=== PATIENT | female | born 1985 | race African-American/Black ===

== ENCOUNTER 2016-10-24 11:11 | Inpatient (IN) | payer OTHER ==
[2016-10-24 13:33] LABS: BASOPHIL 0.4 % (0-2.0); EOSINOPHIL 0.5 % (0-4.5); MCH 28.2 pg (25.7-33.7); MCHC 32.3 g/dl (32.0-36.0); MEAN CELL VOLUME 87.3 fl (80-96); MEAN PLT VOLUME 9.1 fl (7.5-11.1); NEUTROPHILS 78.6 % (42.8-82.8); PLATELET COUNT 188 K/MM3 (134-434); RDW 13.6 % (11.6-15.6); WHITE BLOOD COUNT 9.3 K/mm3 (4.0-10.0)
[2016-10-24 13:55] LABS: ALBUMIN 2.5 g/dl (3.4-5.0); ANION GAP 13 (8-16); BILIRUBIN,TOTAL 0.9 mg/dL (0.2-1.0); CALCIUM 8.4 mg/dL (8.5-10.1); CO2 22 mmol/L (21-32); COCKROFT - GAULT 0; CREATININE 0.7 mg/dL (0.55-1.02); GLUCOSE,RANDOM 54 mg/dL (74-106); SGOT/AST 46 U/L (15-37); SGPT/ALT 44 U/L (12-78); TOT PROT 5.9 g/dl (6.4-8.2)
[2016-10-24 13:56] LABS: ALK PHOS 89 U/L (45-117)
[2016-10-24 14:02] LABS: URINE APPEARANCE CLEAR; URINE BILIRUBIN NEGATIVE (NEGATIVE); URINE BLOOD NEGATIVE (NEGATIVE); URINE COLOR AMBER; URINE GLUCOSE (UA) NEGATIVE (NEGATIVE); URINE KETONE TRACE (NEGATIVE); URINE LEUK ESTERASE NEGATIVE (NEGATIVE); URINE NITRITE NEGATIVE (NEGATIVE); URINE UROBILINOGEN NEGATIVE E.U./dl (0.2-1.0)
[2016-10-24 14:10] LABS: URIC ACID 5.1 mg/dL (2.6-7.2)
[2016-10-24 14:14] LABS: URINE PROTEIN 3+ (NEGATIVE)
[2016-10-24 14:19] LABS: GRANULAR CASTS 5 /lpf; URINE BACTERIA RARE /hpf (NONE SEEN); URINE MUCUS MANY; URINE RBC 2 /hpf (0-3); URINE WBC 4 /hpf (3-5)
[2016-10-24 17:03] VITALS: BMI 43.6
[2016-10-24 17:04] LABS: BASOPHIL 0.3 % (0-2.0); EOSINOPHIL 0.5 % (0-4.5); MCH 28.2 pg (25.7-33.7); MCHC 32.4 g/dl (32.0-36.0); MEAN PLT VOLUME 9.1 fl (7.5-11.1); NEUTROPHILS 81.4 % (42.8-82.8); PLATELET COUNT 198 K/MM3 (134-434); RDW 13.6 % (11.6-15.6); WHITE BLOOD COUNT 9.5 K/mm3 (4.0-10.0)
[2016-10-24 17:22] LABS: CALCIUM 8.3 mg/dL (8.5-10.1); COCKROFT - GAULT 215.152; CREATININE 0.8 mg/dL (0.55-1.02)
[2016-10-24 17:24] LABS: INR 0.99 (0.82-1.09); PROTHROMBIN TIME (PATIENT) 10.9 SEC (9.98-11.88)
[2016-10-24 17:27] LABS: ACTIVATED PTT 31.1 SECONDS (26.9-34.4)
[2016-10-24 17:55] LABS: HIV 1 & 2 AB NEGATIVE; HIV 1 AGp24 NEGATIVE
[2016-10-24] MEDS ORDERED: DINOPROSTONE 10 MG VAGINAL SUPPOSITORY VG ONE (18:08)
--- NOTE | 2016-10-24 18:09 | PN ---
Progress Note (short form) - Note Progress Note: cx clp, vx -4 mi, fhr cat 1, no contraction, cervidil rba discussed , cervidil inserted
--- NOTE | 2016-10-24 18:19 | HP ---
Past Medical History - Primary Care Physician PCP:: Sharan Jarvis - Admission Chief Complaint: 38,6 weeks, pih, for cervidil induction History of Present Illness: 30 yo f 0 edc by sono 11/01/16 , admitted with elevated BP, 3+ proteinuria, no head ache, no blurred vision, no RUQ pain, cervidil induction, risks, benefit discussed agreed History Source: Patient Limitations to Obtaining History: No Limitations - Past Medical History ...: 4 ...Para: 0 ...Term: 0 ...: 0 ...Spon : 0 ...Induced : 3 ...Multiple Gestation: 0 ...LMP: 01/26/16 ... Weeks Gestation by Dates: 38.6 ...EDC by Dates: 11/01/16 ...EDC by Sono: 11/04/16 Infectious Disease: Yes: STD's (txed for chlamydia, trichomonas) - Past Surgical History Hx Myomectomy: No Hx Transabdominal Cerclage: No - Smoking History Smoking history: Never smoked Have you smoked in the past 12 months: Yes - Alcohol/Substance Use Hx Alcohol Use: No - Social History History of Recent Travel: No Home Medications - Allergies Allergies/Adverse Reactions: Allergies Allergy/AdvReac Type Severity Reaction Status Date / Time No Known Allergies Allergy Verified 10/24/16 15:36 - Home Medications Home Medications: Ambulatory Orders NK [No Known Home Medication] 10/24/16 Review of Systems - Review of Systems Constitutional: reports: No Symptoms Eyes: reports: No Symptoms HENT: reports: No Symptoms Neck: reports: No Symptoms Respiratory: reports: No Symptoms Gastrointestinal: reports: No Symptoms Genitourinary: reports: No Symptoms Breasts: reports: No Symptoms Reported Musculoskeletal: reports: No Symptoms Integumentary: reports: No Symptoms Neurological: reports: No Symptoms Endocrine: reports: No Symptoms Hematology/Lymphatic: reports: No Symptoms Psychiatric: reports: No Symptoms Physical Exam - Maternity Vital Signs: Vital Signs Temperature 98.7 F 10/24/16 15:20 Pulse Rate 62 10/24/16 17:00 Respiratory Rate 20 10/24/16 17:00 Blood Pressure 146/75 10/24/16 17:00 O2 Sat by Pulse Oximetry (%) Constitutional: Yes: Obese Eyes: Yes: WNL HENT: Yes: WNL Neck: Yes: WNL Cardiovascular: Yes: WNL Breast(s): Yes: WNL - Abdominal Exam/OB Fundal Height: 38 Number of Fetuses: Single Presentation: Vertex Contractions: No Intensity: Unaware Monitor Mode: External Heart Rate (range): 140 Heart Rate Location: [facility] Category: I Accelerations: Uniform Decelerations: None - Vaginal Exam/OB Vaginal Bleediing: No Speculum Exam: No Dilatation (cm): closed Effacement (%): 0 Amniotic Membrane Status: Intact Presentation: Vertex/Position Station: -4 - Physical Exam Edema: Yes Edema: LLE: 2+, RLE: 2+ Deep Tendon Reflex Grade: Normal +2 - Labs Lab Results: CBC, BMP 10/24/16 16:29 10/24/16 16:29 Hemorrhage Risk Assessment - Risk Factors Medium Risk Factors: Yes: Obesity (BMI >40) Risk Score: 1 Risk Level: Medium Risk Problem List - Problems (1) with 38 completed weeks gestation Code(s): Z3A.38 - 38 WEEKS GESTATION OF (2) Preeclampsia Code(s): O14.90 - UNSPECIFIED PRE-ECLAMPSIA, UNSPECIFIED TRIMESTER Qualifiers : Trimester: third trimester Qualified Code(s): O14.93 - Unspecified pre-eclampsia, third trimester (3) Obesity Code(s): E66.9 - OBESITY, UNSPECIFIED Assessment/Plan admit, HELLP profile, cervidil induction, rba discussed
[2016-10-25] MEDS ORDERED: ELECTROLYTE-148 SOLN 1,000 ML IV SCH ×2 (03:00→13:30)
[2016-10-25] MEDS ORDERED: BUTORPHANOL TARTRATE 1 MG/ML VIAL IVPB ONE (04:00)
--- NOTE | 2016-10-25 05:31 | PN ---
Progress Note (short form) - Note Progress Note: 5 am cx 7 cm, 80 vx -2, variable decel ,to 60 /min, with good recovery , difficult to monitor , does not stay still because of pain, arom, clear fluid , scalp electrode applied . lt side, O2, increase iv fluid , revaluate.for epidural or c /s Problem List - Problems (1) with 38 completed weeks gestation Code(s): Z3A.38 - 38 WEEKS GESTATION OF (2) Preeclampsia Code(s): O14.90 - UNSPECIFIED PRE-ECLAMPSIA, UNSPECIFIED TRIMESTER Qualifiers : Trimester: third trimester Qualified Code(s): O14.93 - Unspecified pre-eclampsia, third trimester (3) Obesity Code(s): E66.9 - OBESITY, UNSPECIFIED
[2016-10-25] MEDS ORDERED: WITCH HAZEL 50% (TUCKS) 40 PAD/JAR PAD TP PRN (05:41)
[2016-10-25] MEDS ORDERED: IBUPROFEN 600 MG TABLET (FP) PO PRN (05:41)
[2016-10-25] MEDS ORDERED: IBUPROFEN 800 MG/8 ML IJ IVPB PRN (05:41)
[2016-10-25] MEDS ORDERED: BENZOCAINE 28 GM HEMORRHOIDAL OINTMENT PR PRN (05:41)
[2016-10-25] MEDS ORDERED: diphenhydrAMINE HCL 25 MG CAPSULE (FP) PO PRN (05:41)
[2016-10-25] MEDS ORDERED: BENZOCAINE 20% 57 GM BOTTLE TP PRN (05:41)
[2016-10-25] MEDS ORDERED: METHYLERGONOVINE MALEATE 0.2 MG/1 ML AMP IM PRN (05:41)
[2016-10-25] MEDS ORDERED: oxyCODONE HCL 5 MG TABLET PO PRN (05:41)
--- NOTE | 2016-10-25 05:41 | PN ---
Progress Note (short form) - Note Progress Note: 515 am varables cont, cx 7 cm, -2 station, advised c/s rba discussed Problem List - Problems (1) with 38 completed weeks gestation Code(s): Z3A.38 - 38 WEEKS GESTATION OF (2) Preeclampsia Code(s): O14.90 - UNSPECIFIED PRE-ECLAMPSIA, UNSPECIFIED TRIMESTER Qualifiers : Trimester: third trimester Qualified Code(s): O14.93 - Unspecified pre-eclampsia, third trimester (3) Obesity Code(s): E66.9 - OBESITY, UNSPECIFIED
[2016-10-25] MEDS ORDERED: OXYTOCIN 20 UNITS in 0.9% NS 1,000 ML IV SCH (05:45)
[2016-10-25] MEDS ORDERED: DEXTROSE 5%-LACTATED RINGERS 1,000 ML IV SCH (05:45)
[2016-10-25] MEDS ORDERED: morphine SULFATE/Preservative Free 0.5 MG/ML (1cc Syringe) SPIN ONE (05:47)
[2016-10-25] MEDS ORDERED: ONDANSETRON 4 MG/2 ML VIAL IVPB PRN (06:09)
[2016-10-25 06:44] LABS: ARTERIAL BLD GAS O2 SATURATION 5.2 % (90-98.9); ARTERIAL BLOOD GAS HCO3 24.8 meq/L (22-26); ARTERIAL BLOOD GAS PO2 8.3 mmHg (80-100); ARTERIAL BLOOD GAS pH 7.22 (7.35-7.45)
[2016-10-25 06:46] LABS: VENOUS BLOOD GAS HCO3 23.7 meq/L (19-25); VENOUS PH 7.28 (7.32-7.42)
[2016-10-25 06:48] LABS: LPM/O2% 21%; PT. ON O2? NO
[2016-10-25 06:49] LABS: TYPE OF O2 ROOM AIR
[2016-10-25] MEDS ORDERED: CEFAZOLIN (PRE-DOCKED) 50 ML IVPB ONE ×2 (10:26→17:23)
[2016-10-25] MEDS: CEFAZOLIN 1 GM/D5W 50 ML IVPB SCH ×2 (10:35→17:25)
[2016-10-25] MEDS: ENOXAPARIN NA (PORCINE) 40 MG/0.4 ML DISP.SYRIN SQ SCH (11:16)
[2016-10-25] MEDS ORDERED: SODIUM CHLORIDE 500 ML IV STA (13:28)
[2016-10-26] MEDS ORDERED: BISACODYL 10 MG SUPP.RECT RC PRN (05:41)
[2016-10-26] MEDS: ACETAMINOPHEN 325 MG TABLET (FP) PO PRN ×3 (07:47→20:56)
[2016-10-26] MEDS: SIMETHICONE 80 MG TAB.CHEW (FP) PO PRN ×2 (07:48→20:52)
[2016-10-26 08:34] LABS: BASOPHIL 0.5 % (0-2.0); EOSINOPHIL 0.1 % (0-4.5); MCH 28.5 pg (25.7-33.7); MCHC 32.7 g/dl (32.0-36.0); MEAN CELL VOLUME 87.1 fl (80-96); MEAN PLT VOLUME 9.1 fl (7.5-11.1); NEUTROPHILS 82.6 % (42.8-82.8); PLATELET COUNT 191 K/MM3 (134-434); RDW 13.7 % (11.6-15.6); WHITE BLOOD COUNT 16.2 K/mm3 (4.0-10.0)
--- NOTE | 2016-10-26 09:09 | OP ---
DATE OF OPERATION: 10/25/2016 PREOPERATIVE DIAGNOSIS: , 37 weeks, -induced hypertension, Cervidil induction, non-reassuring heart rate, variable deceleration. POSTOPERATIVE DIAGNOSIS: , 37 weeks, -induced hypertension, Cervidil induction, non-reassuring heart rate, variable deceleration. PROCEDURE: Primary low segment transverse section. SURGEON: Sharan Jarvis MD SURFACE SUPERVISOR: Angela Mcgarry MD ESTIMATED BLOOD LOSS: 500 mL. ANESTHESIA: Spinal. ANESTHESIOLOGIST: Mark Quinn MD FINDINGS: Live baby girl, 9 and 9, cord around the neck x1, OP position. OPERATION: The patient was taken to the operating room. Under adequate spinal anesthesia, abdomen and perineum were prepped and draped. Pfannenstiel abdominal skin incision was made. Abdominal wall was cut layer by layer until the peritoneum was exposed and incised. Upon entering the abdominal cavity, lower uterine segment was identified, and uterovesical fold of peritoneum was established, bladder was pushed down. Then, with the lower blade of the Bronson retractor in the pelvis, a low transverse uterine incision was made. Incision extended laterally. Amniotic sac was entered. Clear fluid, head delivered from occiput posterior position. Nasopharynx was suctioned, cord around the neck x1 reduced, anterior and posterior shoulders delivered without any difficulty. Live baby girl was delivered, 9 and 9. Placenta was delivered manually. Uterine cavity was cleaned of all remaining tissue. Uterine incision was closed in 2 layers, 1st layer with 0 Biosyn continuous suture, the 2nd layer with 0 Biosyn imbricating the 1st layer. Bladder flap was closed with 0 Biosyn continuous suture. Both tubes and ovaries were checked, were normal. No active bleeding was seen. All the lap pad, sponge count, and instrument count were correct. Then, peritoneum was closed with 0 Biosyn continuous suture, muscles were brought together with interrupted sutures of 0 Biosyn, fascia was closed with 0 Biosyn continuous suture, subcutaneous fat with interrupted suture of 0 Biosyn, and the skin was closed with catrina. The patient tolerated the procedure well, left the OR in good condition. Asher [id number]
[2016-10-26] MEDS: ENOXAPARIN NA (PORCINE) 40 MG/0.4 ML DISP.SYRIN SQ SCH (10:25)
--- NOTE | 2016-10-26 10:55 | PN ---
Progress Note (short form) - Note Progress Note: Anesthesia/Pain Alert and awake Vital Signs Temperature 98.3 F 10/26/16 02:00 Pulse Rate 89 10/26/16 02:00 Respiratory Rate 20 10/26/16 06:00 Blood Pressure 137/94 10/26/16 02:00 O2 Sat by Pulse Oximetry (%) 100 10/25/16 07:30 CBC, BMP 10/26/16 07:45 10/24/16 16:29 Current Active Problems Obesity (Acute) Preeclampsia (Acute) with 38 completed weeks gestation (Acute) s/p c section comfortable. doing well post op continue current care Aime Dacosta
--- NOTE | 2016-10-26 11:37 | PN ---
Progress Note (short form) - Note Progress Note: pod 1. PIH, no head ache, no blurred vision, no RUQ tenderness Current Medications Generic Name Dose Route Start Last Admin Trade Name Freq PRN Reason Stop Dose Admin Acetaminophen 650 mg 10/25/16 06:09 10/26/16 07:47 Tylenol - PO 650 mg Q4H PRN Administration FEVER OR PAIN Benzocaine 1 applic 10/25/16 05:41 Americaine Ointment - NV PRN PRN PAIN Benzocaine 1 spray 10/25/16 05:41 Americaine 20% Butler - TP PRN PRN PAIN Bisacodyl 10 mg 10/26/16 05:41 Dulcolax Suppository - RC PRN PRN CONSTIPATION Diphenhydramine HCl 25 mg 10/25/16 05:41 Benadryl - PO Q8H PRN FOR ITCHING Diphenhydramine HCl 25 mg 10/25/16 06:09 Benadryl Injection - IVPUSH Q4H PRN Pruritis Enoxaparin Sodium 40 mg 10/25/16 10:00 10/26/16 10:25 Lovenox - SQ 40 mg DAILY KAYLEE Administration Dextrose/Lactated Ringer's 1,000 mls @ 125 mls/hr 10/25/16 05:45 D5-Lr - IV ASDIR KAYLEE Parenteral Electrolytes 1,000 mls @ 125 mls/hr 10/25/16 13:30 10/25/16 15:30 Plasma-Lyte 148 - IV 125 mls/hr ASDIR KAYLEE Administration Ibuprofen 600 mg 10/25/16 05:41 Motrin - PO Q4H PRN PAIN Labetalol HCl 200 mg 10/26/16 11:32 Normodyne - PO Q6H PRN HYPERTENSION Methylergonovine Maleate 0.2 mg 10/25/16 05:41 Methergine Injection - IM Q4H PRN EXCESSIVE BLEEDING Oxycodone HCl 5 mg 10/25/16 05:41 Roxicodone - PO Q4H PRN PAIN LEVEL 1-5 Oxycodone HCl 10 mg 10/25/16 05:41 Roxicodone - PO Q4H PRN PAIN LEVEL 6-10 Senna/Docusate Sodium 2 tablet 10/27/16 22:00 Pericolace - PO HS PRN CONSTIPATION Simethicone 80 mg 10/25/16 05:41 10/26/16 07:48 Mylicon - PO 80 mg Q4H PRN Administration GAS Witch Elham/Glycerin 1 pad 10/25/16 05:41 Tucks Pads - TP PRN PRN PAIN CBC, BMP 10/26/16 07:45 10/24/16 16:29 abdomen soft, no distension, no cva, no RUQ tenderness uterus firm, non tender lochia mild no calf tenderness DTR normal pod 1 , elevated BP, asymptomatic will start labatalol prn revaluate Problem List - Problems (1) with 38 completed weeks gestation Code(s): Z3A.38 - 38 WEEKS GESTATION OF (2) Preeclampsia Code(s): O14.90 - UNSPECIFIED PRE-ECLAMPSIA, UNSPECIFIED TRIMESTER Qualifiers : Trimester: third trimester Qualified Code(s): O14.93 - Unspecified pre-eclampsia, third trimester (3) Obesity Code(s): E66.9 - OBESITY, UNSPECIFIED
[2016-10-26] MEDS: LABETALOL HCL 200 MG TABLET (FP) PO PRN (18:09)
[2016-10-26] MEDS: oxyCODONE HCL 5 MG TABLET PO PRN (20:52)
[2016-10-27] MEDS: LABETALOL HCL 200 MG TABLET (FP) PO PRN ×4 (00:33→21:02)
[2016-10-27] MEDS: oxyCODONE HCL 5 MG TABLET PO PRN ×5 (00:34→21:03)
[2016-10-27] MEDS: ACETAMINOPHEN 325 MG TABLET (FP) PO PRN ×5 (00:37→21:03)
[2016-10-27] MEDS: SIMETHICONE 80 MG TAB.CHEW (FP) PO PRN ×4 (05:15→21:02)
--- NOTE | 2016-10-27 09:41 | PN ---
Progress Note (short form) - Note Progress Note: pod 2 no head ache, or blurred vision, ambulating, passing gas, receiving labatalol prn CBC, BMP 10/26/16 07:45 10/24/16 16:29 Last Vital Signs Temp Pulse Resp BP Pulse Ox 98.6 F 81 18 130/76 100 10/27/16 05:34 10/27/16 05:34 10/27/16 05:34 10/27/16 05:34 10/25/16 07:30 abdomen soft, no distension, BS present incision dry, no discharge, has blister at site of adhesive tape plan bacitracin ointment prn monitor bp, Problem List - Problems (1) with 38 completed weeks gestation Code(s): Z3A.38 - 38 WEEKS GESTATION OF (2) Preeclampsia Code(s): O14.90 - UNSPECIFIED PRE-ECLAMPSIA, UNSPECIFIED TRIMESTER Qualifiers : Trimester: third trimester Qualified Code(s): O14.93 - Unspecified pre-eclampsia, third trimester (3) Obesity Code(s): E66.9 - OBESITY, UNSPECIFIED
[2016-10-27] MEDS: ENOXAPARIN NA (PORCINE) 40 MG/0.4 ML DISP.SYRIN SQ SCH (10:18)
[2016-10-27] MEDS: BACITRACIN 30 GM TUBE TOPICAL OINTMENT TP SCH ×2 (12:34→22:00)
[2016-10-27] MEDS: SENNOSIDES/DOCUSATE COMBO (SENNA PLUS) TABLET (UD) PO PRN (21:02)
--- NOTE | 2016-10-27 23:48 | OP ---
DATE OF OPERATION: 10/25/2016 PREOPERATIVE DIAGNOSIS: , 38.6 gestation, induced hypertension, cervical induction, nonreassuring heart rate. POSTOPERATIVE DIAGNOSIS: , 38.6 gestation, induced hypertension, cervical induction, nonreassuring heart rate. PROCEDURE: Primary low segment transverse section. SURGEON: Gene Jarvis M.D. AIR TANK ASSEMBLER: ESTIMATED BLOOD LOSS: 500 mL. OPERATION: Patient was taken to operating room with adequate spinal anesthesia. Abdomen and perineum were prepped and draped. Pfannenstiel abdominal skin incision was made. Abdominal wall was cut layer by layer until the peritoneum was exposed and incised. Upon entering the abdominal cavity, the lower uterine segment was identified, and uterovesical fold of the peritoneum was established. The bladder was pushed down. Then with the lower blade of the Brannon retractor in the pelvis, a low transverse incision was made. The incision extended laterally. Amniotic sac was entered. Clear fluid. Head delivered. Cord around the neck x1 reduced. A live baby was delivered. Placenta was delivered manually. Uterine cavity was cleared of all remaining tissue. Uterine incision was closed in 2 layers, the 1st layer with 0 Biosyn continuous suture, the 2nd layer with 0 Biosyn imbricating the 1st layer. Bladder flap was closed with 0 Biosyn continuous suture. Both tubes and ovaries were checked and were normal. No active bleeding was seen. All the lap, sponge, and instrument counts were correct. Peritoneum was closed with 0 Biosyn continuous suture. Muscles were brought together interrupted suture with 0 Biosyn. Fascia was closed with 0 Biosyn continuous sutures. Subcutaneous fat interrupted sutures 0 Biosyn, and the skin was closed with catrina. The patient tolerated the procedure well and left the OR in good condition. GENE JARVIS M.D. [id number]
[2016-10-28] MEDS: LABETALOL HCL 200 MG TABLET (FP) PO PRN (02:54)
[2016-10-28] MEDS: oxyCODONE HCL 5 MG TABLET PO PRN (04:00)
[2016-10-28] MEDS: ACETAMINOPHEN 325 MG TABLET (FP) PO PRN ×3 (04:00→21:54)
[2016-10-28 08:05] LABS: BASOPHIL 0.5 % (0-2.0); EOSINOPHIL 2.4 % (0-4.5); MCH 28.6 pg (25.7-33.7); MCHC 32.6 g/dl (32.0-36.0); MEAN CELL VOLUME 87.7 fl (80-96); MEAN PLT VOLUME 8.8 fl (7.5-11.1); NEUTROPHILS 75.7 % (42.8-82.8); PLATELET COUNT 188 K/MM3 (134-434); RDW 13.7 % (11.6-15.6); WHITE BLOOD COUNT 10.7 K/mm3 (4.0-10.0)
--- NOTE | 2016-10-28 08:11 | PN ---
Progress Note (short form) - Note Progress Note: pod 3 pih, no c/o mild elevation of BP, asymptomatic CBC, BMP 10/24/16 16:29 Last Vital Signs Temp Pulse Resp BP Pulse Ox 98.7 F 67 18 145/93 100 10/28/16 06:00 10/28/16 06:00 10/28/16 06:00 10/28/16 06:00 10/25/16 07:30 abdomen soft, no distension, no cva incision dry, clean blister are drying up DTR normal impression mild elevation of BP, will stsrt labetalol bid , revaluate Problem List - Problems (1) with 38 completed weeks gestation Code(s): Z3A.38 - 38 WEEKS GESTATION OF (2) Preeclampsia Code(s): O14.90 - UNSPECIFIED PRE-ECLAMPSIA, UNSPECIFIED TRIMESTER Qualifiers : Trimester: third trimester Qualified Code(s): O14.93 - Unspecified pre-eclampsia, third trimester (3) Obesity Code(s): E66.9 - OBESITY, UNSPECIFIED
[2016-10-28] MEDS: LABETALOL HCL 200 MG TABLET (FP) PO SCH ×2 (09:43→21:52)
[2016-10-28] MEDS: ENOXAPARIN NA (PORCINE) 40 MG/0.4 ML DISP.SYRIN SQ SCH (09:43)
[2016-10-28] MEDS: BACITRACIN 30 GM TUBE TOPICAL OINTMENT TP SCH ×2 (09:44→21:58)
[2016-10-28] MEDS: SIMETHICONE 80 MG TAB.CHEW (FP) PO PRN ×2 (10:03→21:54)
[2016-10-28] MEDS: SENNOSIDES/DOCUSATE COMBO (SENNA PLUS) TABLET (UD) PO PRN (21:52)
[2016-10-29] MEDS: ACETAMINOPHEN 325 MG TABLET (FP) PO PRN (01:09)
--- NOTE | 2016-10-29 08:40 | PN ---
Post Progress Note - Subjective Subjective: 30 yo P1 s/p 1' LST c/s no complains, no GRIDER, no visual changes pain is controlled Tolarating regular diet +flatus, BM Post Day: 4 Type of Delivery: Primary C/S Vital Signs: Vital Signs Temperature 98.4 F 10/28/16 21:27 Pulse Rate 67 10/29/16 05:15 Respiratory Rate 20 10/29/16 05:15 Blood Pressure 139/92 10/29/16 05:15 O2 Sat by Pulse Oximetry (%) 100 10/25/16 07:30 Breast Exam: Yes: Soft Uterus: Yes: Fundus Firm Incision: Yes: Gaston intact (Removed, taught patient wound care) Abdomen/GI: Yes: Abdomen soft, Passing flatus, Tolerating PO Lochia: Yes: Rubra Lochia, amount: Small Extremities: Yes: Calves non-tender Perineum: Yes: Intact Activity: Ambulating - Labs Labs: CBC WBC 10.7 K/mm3 (4.0-10.0) H D 10/28/16 07:00 RBC 3.32 M/mm3 (3.60-5.2) L 10/28/16 07:00 Hgb 9.5 GM/dL (10.7-15.3) L 10/28/16 07:00 Hct 29.1 % (32.4-45.2) L 10/28/16 07:00 MCV 87.7 fl (80-96) 10/28/16 07:00 MCHC 32.6 g/dl (32.0-36.0) 10/28/16 07:00 RDW 13.7 % (11.6-15.6) 10/28/16 07:00 Plt Count 188 K/MM3 (134-434) 10/28/16 07:00 MPV 8.8 fl (7.5-11.1) 10/28/16 07:00 Neutrophils % 75.7 % (42.8-82.8) 10/28/16 07:00 Lymphocytes % 13.7 % (8-40) D 10/28/16 07:00 Monocytes % 7.7 % (3.8-10.2) 10/28/16 07:00 Eosinophils % 2.4 % (0-4.5) D 10/28/16 07:00 Basophils % 0.5 % (0-2.0) 10/28/16 07:00 Retic Count 2.55 % (0.5-1.5) H 10/24/16 13:10 Haptoglobin 49 mg/dL (34-200) 10/24/16 13:10 Assessment/Plan 30 yo P1 with HTN, now on Labetalol, Visiting Nurse order placed Strick preeclamptic precautions given Explained need for ambulating when at home Return to office in 1 week Nothing vaginally for 6 weeks
[2016-10-29] MEDS: LABETALOL HCL 200 MG TABLET (FP) PO SCH (09:20)
[2016-10-29] MEDS: ENOXAPARIN NA (PORCINE) 40 MG/0.4 ML DISP.SYRIN SQ SCH (09:20)
[2016-10-29] MEDS: BACITRACIN 30 GM TUBE TOPICAL OINTMENT TP SCH (11:17)
[2016-10-29 11:25] VITALS: BP 151/90; PULSE 66; TEMP 98.6
--- NOTE | 2016-10-30 13:32 | PATH ---
Surgical Pathology Report Patient Name: PHILLIP BECKMAN Med. Rec. #: [id number] /Age/Gender: 1985 (Age: 30) / F Account: [id number] Location: [facility] OBS/CHURN TENDER Taken: 10/24/2016 Received: 10/25/2016 Reported: 10/30/2016 Physicians: Mark Macias M.D. Specimen(s) Received PLACENTA Clinical History 38 week induction for PIH 3 IAB, obesity, history of STD Final Diagnosis PLACENTA, DELIVERY: THIRD TRIMESTER PLACENTA WITH FOCAL INTERVILLOUS FIBRIN DEPOSITION, 3 VESSEL UMBILICAL CORD, AND UNREMARKABLE PLACENTAL MEMBRANES. Electronically Signed Devyn Paula M.D. Gross Description The specimen is received fresh labeled placenta and is a 428 gram, 15.0 x 13.5 x 2.8 cm. placenta with attached membranes and umbilical cord. The attached membranes are parra, translucent with focal opacities and insert marginally. The umbilical cord measures 14 cm. in length and averages 1.1 cm. in diameter. The cord inserts eccentrically, 2 cm. to the nearest margin. No true knots or strictures are identified. Cut surface of the umbilical cord reveals 3 vessels. The surface is kessler blue with moderate fibrin deposition and appropriate caliber vessels. The maternal surface is red-brown and intact. Sectioning reveals red-brown, spongy parenchyma. No lesions are identified. Health Underwriter sections are submitted in three cassettes as follows: 1- membrane rolls and umbilical cord; 2-3- full thickness sections of placenta. 10/29/2016 [facility]10/29/2016
--- NOTE | 2016-10-31 14:51 | DS ---
Physical Exam-DETENTION WORKER Vital Signs: Vital Signs Temperature 98.6 F 10/29/16 09:00 Pulse Rate 66 10/29/16 09:00 Respiratory Rate 20 10/29/16 09:00 Blood Pressure 151/90 10/29/16 09:00 O2 Sat by Pulse Oximetry (%) 100 10/25/16 07:30 Constitutional: Yes: Well Nourished, No Distress, Calm Eyes: Yes: WNL, Conjunctiva Clear, EOM Intact HENT: Yes: WNL, Atraumatic, Normocephalic Neck: Yes: WNL, Supple, Trachea Midline Cardiovascular: Yes: WNL, Regular Rate and Rhythm Respiratory: Yes: WNL, Regular, CTA Bilaterally Gastrointestinal: Yes: WNL ...Rectal Exam: Yes: WNL Renal/: Yes: WNL ....Post : Yes: Uterus firm, Uterus non-tender, Slight lochia rubra Breast(s): Yes: WNL Musculoskeletal: Yes: WNL Extremities: Yes: WNL Integumentary: Yes: WNL Wound/Incision: Yes: Clean/Dry, Well Approximated Neurological: Yes: WNL, Alert, Oriented ...Motor Strength: WNL Psychiatric: Yes: WNL, Alert, Oriented Labs: CBC, BMP 10/28/16 07:00 10/24/16 16:29 Delivery - Delivery Section: Primary, Low Flap Transverse (nocomplication) Type of Anesthesia: Spinal Episiotomy/Laceration: None EBL (cc): 500 Delivery, Single - Stages of Labor Date 1st Stage Initiatied: 10/25/16 Time 1st Stage Initiated: 02:45 Date of Delivery: 10/25/16 Time of Delivery: 05:59 Time Placenta Delivered: 06:00 Placenta: Yes: Expressed - Condition of Infant Telegraph Office Telephone Clerk/Seismograph Shooter Present: Yes Name: Renan Weeks Infant Gender: Female Weight: 7 lb 1 oz Position: OP Total Hours ROM (Hrs/Mins): 1 hour - 1 Minute Total Score: 9 5 Minutes Total Score: 9 - [place] Feeding Plan Initial Plan: Exclusive throughout hospitalization Discharge Summary Reason For Visit: LABOR Procedures: Principal: primary lst c/s Hospital Course: pih, txed Condition: Good - Instructions Diet, Activity, Other Instructions: Physical activity Resume your normal everyday activity as tolerated no heavy lifting or exercise until seen by your surgeon. You may walk unlimited otnoiel of and climb stairs. You may resume driving the car when you feel safe and comfortable behind the wheel. No sexual activity as instructed. Wound care If you have a bandage, leave it on, and keep dry for 48-72 hours. After that time discard the outer bandage. If they are tapes on the skin under the out of bandage leave them in place. They will peel off in the next 7 to 10 days. Do Not Peel them off. You may shower the day after surgery. If there are tapes present on the skin, you may shower over them. Diet There are no dietary restrictions. Eat healthy, high-fiber foods. Drink 6 to 8 glasses of liquid each day. This will assist in keeping your bowels are regular. Pain management You may take Tylenol or acetaminophen or Ibuprofen (for example, Motrin, Advil etc.) from my pain prescription medication is ordered should be taken as prescribed for moderate to severe pain. Call MD for any of the following: Severe pain not relieved by medication Fever of 101 or higher Excessive bleeding or drainage on dressing Inability to urinate regular diet, follow up office 1 week Referrals: Mark Macias MD [Staff Physician] - Disposition: HOME - Home Medications Comprehensive Discharge Medication List: Ambulatory Orders Ibuprofen [Motrin -] 600 mg PO QID #28 tablet 10/27/16 Labetalol HCl [Normodyne -] 200 mg PO BID #60 tablet 10/29/16 Oxycodone HCl 5 mg PO Q4HWA #10 capsule MDD 8 10/29/16
== END 2016-10-29 14:00 | disposition home or self-care (01) | DRG 540 ==
LOC: JDEL 11:11 → JLDR 15:20 → J3W 10-25 09:05
PROVIDERS: ADMIT Obstetrics & Gynecology; ATTEND Obstetrics & Gynecology
PROC: 3E0P7GC Introduction of Other Therapeutic Substance into Female Reproductive, Via Natural or Artificial Opening (ICD-10-PCS; 2016-10-24)
PROC: 10D00Z1 Extraction of Products of Conception, Low, Open Approach (ICD-10-PCS; principal; 2016-10-25)
DX: O13.3 Gestational [pregnancy-induced] hypertension without significant proteinuria, third trimester (principal); O99.214 Obesity complicating childbirth; E66.9 Obesity, unspecified; Z68.41 Body mass index [BMI] 40.0-44.9, adult; O76 Abnormality in fetal heart rate and rhythm complicating labor and delivery; Z3A.38 38 weeks gestation of pregnancy; Z37.0 Single live birth
CPT/HCPCS: 36415; 36600; 80048; 80053; 81003; 81015; 82803; 82977; 83010; 84550; 85025; 85044; 85610; 85730; 86593; 86850; 86900; 86901; 87389; 88307-TC

== ENCOUNTER 2019-05-04 15:59 | Emergency (ER) | payer OTHER ==
[2019-05-04 16:14] VITALS: BP 125/52; PULSE 69; TEMP 98.6; BMI 38.4
--- NOTE | 2019-05-04 16:15 | PDOC ---
Rapid Medical Evaluation Chief Complaint: Vaginal Bleeding Time Seen by Provider: 05/04/19 16:11 Medical Evaluation: Allergies Allergy/AdvReac Type Severity Reaction Status Date / Time No Known Allergies Allergy Verified 10/24/16 15:36 05/04/19 16:11 I have performed a brief in-person evaluation of this patient. The patient presents with a chief complaint of:vag bleeding with clots on and off x 1 week. 7weeks preg, planned preg - told to come from [place] Pertinent physical exam findings: soft, NT, I have ordered the following: Cbc, T&S, BHcG, US The patient will proceed to the ED for further evaluation. Discharge Disposition - Diagnosis Vaginal bleeding affecting early - Referrals - Patient Instructions - Post Discharge Activity
[2019-05-04 16:58] LABS: BASO % 0.4 % (0-2.0); EOS % 0.7 % (0-4.5); HEMOGLOBIN 11.6 GM/dL (10.7-15.3); LYMPH % 20.5 % (8-40); MCH 27.2 pg (25.7-33.7); MCHC 32.2 g/dl (32.0-36.0); MEAN CELL VOLUME 84.5 fl (80-96); MEAN PLT VOLUME 8.1 fl (7.5-11.1); MONO % 9.1 % (3.8-10.2); NEUT % 69.3 % (42.8-82.8); PLATELET COUNT 247 K/MM3 (134-434); RBC 4.26 M/mm3 (3.60-5.2); RDW 13.7 % (11.6-15.6); WHITE BLOOD COUNT 8.2 K/mm3 (4.0-10.0)
--- NOTE | 2019-05-04 17:17 | PDOC ---
History of Present Illness <PeteErikaisabelle Contreras - Last Filed: 05/04/19 20:20> <Padmaja Perez - Last Filed: 05/04/19 23:37> - General Chief Complaint: Vaginal Bleeding Stated Complaint: 7 WEEKS/ SPOTTING Time Seen by Provider: 05/04/19 16:11 Past History <Erika Freeman Diane - Last Filed: 05/04/19 20:20> - Past Medical History Asthma: No Cancer: No Cardiac Disorders: No COPD: No Diabetes: No HTN: Yes ( INDUCED) Seizures: No Thyroid Disease: No - Psycho Social/Smoking Cessation Hx Smoking History: Never smoked Have you smoked in the past 12 months: Yes Hx Alcohol Use: No Drug/Substance Use Hx: No Hx Substance Use Treatment: No <Padmaja Perez - Last Filed: 05/04/19 23:37> - Past Medical History Allergies/Adverse Reactions: Allergies Allergy/AdvReac Type Severity Reaction Status Date / Time No Known Allergies Allergy Verified 05/04/19 16:14 Home Medications: Ambulatory Orders Ibuprofen [Motrin -] 600 mg PO QID #28 tablet 10/27/16 Labetalol HCl [Normodyne -] 200 mg PO BID #60 tablet 10/29/16 Oxycodone HCl 5 mg PO Q4HWA #10 capsule MDD 8 10/29/16 *Physical Exam - Vital Signs Last Vital Signs Temp Pulse Resp BP Pulse Ox 98.6 F 69 16 125/52 L 100 05/04/19 16:10 05/04/19 16:10 05/04/19 16:10 05/04/19 16:10 05/04/19 16:10 <Erika Freeman - Last Filed: 05/04/19 20:20> - Vital Signs Last Vital Signs Temp Pulse Resp BP Pulse Ox 98.6 F 69 16 125/52 L 100 05/04/19 16:10 05/04/19 16:10 05/04/19 16:10 05/04/19 16:10 05/04/19 16:10 <Padmaja Perez - Last Filed: 05/04/19 23:37> ED Treatment Course - LABORATORY CBC & Chemistry Diagram: 05/04/19 16:32 05/04/19 16:32 - ADDITIONAL ORDERS Additional order review: Laboratory Results 05/04/19 05/04/19 16:32 16:32 Sodium 137 Potassium 4.0 Chloride 106 Carbon Dioxide 23 Anion Gap 7 L BUN 15.3 Creatinine 0.8 Est GFR (CKD-EPI)AfAm 113.86 Est GFR (CKD-EPI)NonAf 98.24 Random Glucose 89 Calcium 8.8 Total Bilirubin 0.4 AST 17 ALT 20 Alkaline Phosphatase 67 Total Protein 7.3 Albumin 3.5 Beta HCG, Quant 1113.3 Blood Type O POSITIVE Antibody Screen Negative 05/04/19 16:32 RBC 4.26 MCV 84.5 MCHC 32.2 RDW 13.7 MPV 8.1 Neutrophils % 69.3 Lymphocytes % 20.5 D Monocytes % 9.1 Eosinophils % 0.7 Basophils % 0.4 <Erika Freeman - Last Filed: 05/04/19 20:20> - LABORATORY CBC & Chemistry Diagram: 05/04/19 16:32 05/04/19 16:32 <Padmaja Perez - Last Filed: 05/04/19 23:37> Medical Decision Making - Medical Decision Making 05/04/19 17:23 HPI: 33yo F (c/s in 2006, no complications) no PMH at approx 7.5wks ( TVUS 04/25/19 approx 6 weeks per pt, LMP unknown sometime in 02/2019) presents from home (told to come by phone call with Dr Macias) c/o 1 day of vaginal bleeding with clots, suprapubic cramping, and diffuse back pain , plus 5wks of vaginal spotting. Pt has had 5wks of minimal bright red spotting just when wiping without pain since found out was . Not on control, desired . Pt went to cardiopulmonary technician Dr. Macias for first time on 04/25/19 and was told by TVUS that there was a gestational and yolk sac present and she was approx 6wks . Today pt started suprapubic constant nonradiating cramping of sudden onset at noon, with associated diffuse back pain and vaginal bleeding with wing-sized clots without tissue filling [address] Macias and told to come here. Denies water breaking, movement, trauma, falls, fever, chills, fatigue, headache, lightheadedness, dizziness, numbness/tingling, weakness, vision changes, shortness of breath, cough, chest pain, palpitations, leg swelling, blood in stool, diarrhea, constipation, nausea , vomiting, dysuria, hematuria, confusion. ROS: Constitutional: Negative for chills, fever, fatigue, diaphoresis. HENT: Negative for sore throat, rhinorrhea, congestion. Eyes: Negative for visual disturbance. Respiratory: Negative for shortness of breath, cough, and wheezing. Cardiovascular: Negative for chest pain, palpitations, and leg swelling. Gastrointestinal: Positive for suprapubic pain. Negative for blood in stool, constipation, diarrhea, nausea, and vomiting. Genitourinary: Negative for dysuria, flank pain, and hematuria. Musculoskeletal: Positive for back pain. Negative for myalgias and neck pain. Skin: Negative for rash. Neurological: Negative for light-headedness, dizziness, vertigo, syncope, weakness, numbness and headaches. Psychiatric/Behavioral: Negative for behavioral problems and confusion. PE: Gen: Alert, NAD, uncomfortable-appearing, obese HEENT: PERRL, EOMI, MMM, NCAT. No conjunctival pallor. Sclera are non-icteric. Oropharynx is clear. CV: Regular rate and rhythm. No murmurs, rubs, or gallops. PULM: No resp distress. CTAB, no wheezes, rales, or rhonchi. ABD: protuberant, soft, NT/ND, no rebound tenderness or guarding, no CVA tenderness. PELVIC: External genitalia unremarkable. Moderate blood and small dark clots seen in vaginal vault. No active bleeding from cervical os. No discharge seen with speculum exam. Cervix visualized and is unremarkable (closed in appearance without any protruding material). Bimanual exam without cervical motion tenderness, adnexal tenderness, or any masses appreciated. BACK: No TTP of c/t/l-spine. No step-offs or deformities. MSK: No bony deformities. 2+ pulses in all extremities. NEURO: AAOx3. PERRL. No gross CN deficits. Strength and sensation grossly intact throughout. EXTREMITIES: No cyanosis. No clubbing. No edema. No calf tenderness. PSYCH: Normal mood and thought pattern. SKIN: Warm and dry. Normal capillary refill. No rashes. No jaundice. MDM: 33yo F no PMH at approx 7.5wks (TVUS 04/25/19 approx 6 weeks per pt, LMP unknown sometime in 02/2019) presents from home (told to come by phone call with Dr Macias) with 1 day of vaginal bleeding with clots, suprapubic cramping, and diffuse back pain , plus 5wks of vaginal spotting. Hemodynamically stable, afebrile, benign abdomen exam, pelvic exam notable for dark red blood and clots in vault. DDx includes implantation bleeding, anembryonic , heterotopic , ectopic , molar pregnacy, spontaneous , round ligament pain, ovarian torsion, Rh sensitization, ovarian cyst/cyst rupture -CBC,CMP,HCG,T&S -TVUS -Pain management: pt refuses pain meds -Pending w/u, consider cardiopulmonary technician consult -Dispo: likely d/c home w/48hr cardiopulmonary technician f/u 05/04/19 19:26 Labs reviewed. Of note, HCG 1113, H/H WNL. 05/04/19 23:23 TVUS reviewed: probable anembryonic gestation/blighted ovum. TVUS and HCG most consistent with anembryonic / inevitable , but also consider threatened or early . No s/s of anemia or severe active bleeding. Pt was safe for d/c. Per Dr Freeman, Dr Freeman dc'd home with cardiopulmonary technician f/u, return precautions were given. <Padmaja Perez - Last Filed: 05/04/19 23:37> Discharge - Discharge Information Problems reviewed: Yes <Erika Freeman - Last Filed: 05/04/19 20:20> <Padmaja Perez - Last Filed: 05/04/19 23:37> - Discharge Information Clinical Impression/Diagnosis: Vaginal bleeding affecting early , Threatened Condition: Stable Disposition: HOME - Follow up/Referral Referrals: Lalita Georges [Primary Care Provider] - - Patient Discharge Instructions Patient Printed Discharge Instructions: DI for Threatened Additional Instructions: You need to see your PRINCIPAL HARDWARE ARCHITECT as soon as possible. Please call Dr. Macias for follow-up appointment. You can take Tylenol for cramping pain Return if you have excessive vaginal bleeding with using 1 pads per hour - Post Discharge Activity
--- NOTE | 2019-05-04 18:20 | PDOC ---
Documentation entered by Torie Hayes SCRIBE, acting as scribe for Erika Freeman MD. Erika Freeman MD: This documentation has been prepared by the katinaibe, Torie Hayes SCRIBE, under my direction and personally reviewed by me in its entirety. I confirm that the documentation accurately reflects all work, treatment, procedures, and medical decision making performed by me. Attending Attestation - Resident Resident Name: Padmaja Perez - ED Attending Attestation I have performed the following: I have examined & evaluated the patient, The case was reviewed & discussed with the resident, I agree w/resident's findings & plan, Exceptions are as noted - HPI HPI: 05/04/19 18:12 33yo female states she is 7 weeks p/w vaginal bleeding,passing clots 05/04/19 18:16 - Physicial Exam PE: 05/04/19 18:15 Obese 33-year-old female presents stating she is 7 weeks and has had vaginal bleeding and is passing clots I agree with Dr. Char Perez's physical exam. - Medical Decision Making 05/04/19 18:19 Obese 33-year-old female 2 para 1 presents with vaginal bleeding SANITATION WORKER is Dr. Macias Plan type and screen, beta hCG, CBC, comp and transvaginal ultrasound Impression threatened AB 05/05/19 02:30 Transvaginal ultrasound reveals a blighted ovum Patient has to follow-up with her MEDICAL SERVICE TECHNICIAN
[2019-05-04 18:52] LABS: ALBUMIN 3.5 g/dl (3.4-5.0); BILIRUBIN,TOTAL 0.4 mg/dL (0.2-1); BLOOD UREA NITROGEN 15.3 mg/dL (7-18); CALCIUM 8.8 mg/dL (8.5-10.1); CREATININE 0.8 mg/dL (0.55-1.3); TOT PROT 7.3 g/dl (6.4-8.2)
== END 2019-05-04 20:29 | disposition home or self-care (01) ==
LOC: JER 15:59
DX: O26.891 Other specified pregnancy related conditions, first trimester (principal); O20.0 Threatened abortion; Z3A.01 Less than 8 weeks gestation of pregnancy
CPT/HCPCS: 36415; 76817-TC; 80053; 84702; 85025; 86850; 86900; 86901; 99283-25

== ENCOUNTER 2022-04-08 10:05 | Inpatient (IN) | payer OTHER ==
[2022-04-08] MEDS ORDERED: ELECTROLYTE-148 SOLN 500 ML IV ONE (10:30)
[2022-04-08] MEDS ORDERED: CITRIC ACID/SODIUM CITRATE 30 ML UNIT-DOSE CUP PO ONE (10:30)
[2022-04-08] MEDS ORDERED: ELECTROLYTE-148 SOLN 1,000 ML IV SCH ×2 (11:00→12:30)
[2022-04-08 11:29] VITALS: BMI 41.9
[2022-04-08] MEDS ORDERED: morphine SULFATE (PF) 1 MG/2 ML SYRINGE ONE (15:05)
[2022-04-08 15:23] LABS: BLOOD UREA NITROGEN 9.9 mg/dL (7-18); CALCIUM 9.1 mg/dL (8.5-10.1)
[2022-04-08 15:24] LABS: ALBUMIN 2.7 g/dl (3.4-5.0)
[2022-04-08 15:27] LABS: CREATININE 0.6 mg/dL (0.55-1.3)
[2022-04-08 15:29] LABS: BILIRUBIN,TOTAL 1.3 mg/dL (0.2-1); TOT PROT 6.6 g/dl (6.4-8.2)
[2022-04-08] MEDS ORDERED: ePHEDrine SULFATE 50 MG/1 ML AMPULE ONE (17:51)
[2022-04-08] MEDS ORDERED: ceFAZolin SODIUM 1 GM VIAL ONE (17:59)
[2022-04-08] MEDS ORDERED: morphine SULFATE/PF 1 MG/2 ML (2cc Syringe - QUVA) EP ONE (18:10)
[2022-04-08] MEDS: OXYTOCIN 20 UNITS in 0.9% NS 20 UNIT/1,000 ML INFUS.BAG IV SCH ×2 (18:16→21:25)
[2022-04-08] MEDS ORDERED: KETOROLAC TROMETHAMINE 30 MG/1 ML VIAL ONE (18:33)
[2022-04-08 19:24] LABS: CORD HCO3 18.9 mmHg (20-29); CORD PCO2 88.9 mmHg (30-78)
[2022-04-08] MEDS ORDERED: IBUPROFEN 800 MG/8 ML IJ IVPB PRN (19:24)
[2022-04-08] MEDS ORDERED: METHYLERGONOVINE MALEATE 0.2 MG/1 ML AMP IM PRN (19:24)
[2022-04-08] MEDS ORDERED: WITCH HAZEL 50% (TUCKS) 40 PAD/JAR PAD TP PRN (19:24)
[2022-04-08] MEDS ORDERED: IBUPROFEN 600 MG TABLET (FP) PO PRN (19:24)
[2022-04-08] MEDS ORDERED: SENNOSIDES/DOCUSATE COMBO (SENNA PLUS) TABLET (UD) PO PRN (19:24)
[2022-04-08] MEDS ORDERED: SIMETHICONE 80 MG TAB.CHEW (FP) PO PRN (19:24)
[2022-04-08] MEDS ORDERED: BENZOCAINE 20% 57 GM BOTTLE TP PRN (19:24)
[2022-04-08] MEDS ORDERED: ACETAMINOPHEN 325 MG TABLET (FP) PO PRN (19:24)
[2022-04-08] MEDS ORDERED: BENZOCAINE 28 GM HEMORRHOIDAL OINTMENT TP PRN (19:24)
[2022-04-08 19:25] LABS: CORD pH 6.945 (7.14-7.44)
[2022-04-08 19:29] LABS: CORD HCO3 21.9 mmHg (20-29); CORD PCO2 97.4 mmHg (30-78); CORD pH 6.969 (7.14-7.44)
[2022-04-08] MEDS ORDERED: ONDANSETRON 4 MG/2 ML VIAL IVPUSH PRN (21:20)
[2022-04-09] MEDS: CEFAZOLIN 1 GM in DEXTROSE 5%-WATER - 50 ML IVPB SCH ×3 (02:10→17:28)
[2022-04-09] MEDS ORDERED: oxyCODONE HCL 5 MG TABLET PO PRN ×2 (07:24)
[2022-04-09 08:54] LABS: BASO % 0.2 % (0-2.0); HEMATOCRIT 37.5 % (32.4-45.2); HEMOGLOBIN 11.9 GM/dL (10.7-15.3); LYMPH % 4.4 % (8-40); MCHC 31.8 g/dl (32.0-36.0); MEAN CELL VOLUME 84.9 fl (80-96); MEAN PLT VOLUME 8.4 fl (7.5-11.1); MONO % 5.3 % (3.8-10.2); NEUT % 90.1 % (42.8-82.8); PLATELET COUNT 232 10^3/uL (134-434); RBC 4.41 M/mm3 (3.60-5.2); WHITE BLOOD COUNT 18.9 K/mm3 (4.0-10.0)
[2022-04-09] MEDS: ENOXAPARIN NA (PORCINE) 40 MG/0.4 ML DISP.SYRIN SQ SCH (09:57)
[2022-04-09] MEDS: PRENATAL VITAMINS W/ FOLIC ACID TABLET (FP) PO SCH (09:58)
[2022-04-09] MEDS ORDERED: BISACODYL 10 MG SUPP.RECT RC PRN (19:24)
[2022-04-09 22:02] LABS: BASO % 0.3 % (0-2.0); EOS % 0.6 % (0-4.5); HEMATOCRIT 33.1 % (32.4-45.2); HEMOGLOBIN 10.6 GM/dL (10.7-15.3); LYMPH % 11.4 % (8-40); MEAN CELL VOLUME 84.5 fl (80-96); MEAN PLT VOLUME 8.7 fl (7.5-11.1); MONO % 7.9 % (3.8-10.2); NEUT % 79.8 % (42.8-82.8); PLATELET COUNT 264 10^3/uL (134-434); RBC 3.92 M/mm3 (3.60-5.2); WHITE BLOOD COUNT 18.2 K/mm3 (4.0-10.0)
[2022-04-10] MEDS: ENOXAPARIN NA (PORCINE) 40 MG/0.4 ML DISP.SYRIN SQ SCH (09:43)
[2022-04-10] MEDS: PRENATAL VITAMINS W/ FOLIC ACID TABLET (FP) PO SCH (09:43)
[2022-04-11 09:07] LABS: BASO % 0.4 % (0-2.0); EOS % 1.3 % (0-4.5); HEMATOCRIT 33.1 % (32.4-45.2); HEMOGLOBIN 10.5 GM/dL (10.7-15.3); LYMPH % 12.2 % (8-40); MCH 26.9 pg (25.7-33.7); MCHC 31.7 g/dl (32.0-36.0); MEAN CELL VOLUME 84.9 fl (80-96); MEAN PLT VOLUME 8.3 fl (7.5-11.1); MONO % 9.8 % (3.8-10.2); NEUT % 76.3 % (42.8-82.8); PLATELET COUNT 228 10^3/uL (134-434); RDW 14.1 % (11.6-15.6); WHITE BLOOD COUNT 11.9 K/mm3 (4.0-10.0)
[2022-04-11] MEDS: ENOXAPARIN NA (PORCINE) 40 MG/0.4 ML DISP.SYRIN SQ SCH (09:28)
[2022-04-11] MEDS: PRENATAL VITAMINS W/ FOLIC ACID TABLET (FP) PO SCH (09:28)
[2022-04-11 18:15] VITALS: BP 123/88; PULSE 64; RESP 18; TEMP 97.8
== END 2022-04-11 13:45 | disposition home or self-care (01) | DRG 540 ==
LOC: JLDR 10:05 → J3W 21:00
PROVIDERS: ADMIT Obstetrics & Gynecology; ATTEND Obstetrics & Gynecology
PROC: 10D00Z1 Extraction of Products of Conception, Low, Open Approach (ICD-10-PCS; principal; 2022-04-08)
DX: O26.62 Liver and biliary tract disorders in childbirth (principal); O12.04 Gestational edema, complicating childbirth; O34.211 Maternal care for low transverse scar from previous cesarean delivery; O99.214 Obesity complicating childbirth; E66.01 Morbid (severe) obesity due to excess calories; Z3A.38 38 weeks gestation of pregnancy; Z37.0 Single live birth
CPT/HCPCS: 36415; 36600; 80053; 82803; 85025; 88307-TC

== ENCOUNTER 2023-05-23 12:44 | Emergency (ER) | payer OTHER ==
[2023-05-23 12:54] VITALS: BMI 37.3
[2023-05-23] MEDS ORDERED: SODIUM CHLORIDE 3,538 ML IV ONE (13:47)
[2023-05-23] MEDS ORDERED: ONDANSETRON 4 MG/2 ML VIAL IVPUSH ONE (13:52)
[2023-05-23] MEDS ORDERED: ACETAMINOPHEN 1000 MG/100 ML BAG IVPB ONE (13:52)
[2023-05-23] MEDS ORDERED: SODIUM CHLORIDE 0.9% 500 ML INFUS.BAG IV ONE ×2 (13:53)
[2023-05-23] MEDS ORDERED: ACETAMINOPHEN INJECTION 100 ML IVPB ONE (14:02)
[2023-05-23] MEDS ORDERED: ONDANSETRON 4 MG/2 ML VIAL ONE (14:02)
[2023-05-23 14:53] LABS: BASO % 0.1 % (0-2.0); EOS % 0.6 % (0-4.5); HEMATOCRIT 37.5 % (32.4-45.2); LYMPH % 2.7 % (8-40); MCH 25.5 pg (25.7-33.7); MEAN CELL VOLUME 79.9 fl (80-96); MEAN PLT VOLUME 8.5 fl (7.5-11.1); MONO % 6.7 % (3.8-10.2); NEUT % 89.9 % (42.8-82.8); PLATELET COUNT 225 10^3/uL (134-434); RBC 4.69 M/mm3 (3.60-5.2); RDW 13.8 % (11.6-15.6); VENOUS BASE EXCESS -0.8 mmol/L (-2-2); VENOUS O2 SATURATION 96.1 % (70-80); VENOUS PCO2 34.1 mmHg (38-52); VENOUS PH 7.442 (7.310-7.410); WHITE BLOOD COUNT 10.2 K/mm3 (4.0-10.0)
[2023-05-23 15:01] LABS: INR 1.19 (0.83-1.09); PROTHROMBIN TIME (PATIENT) 13.8 SEC (9.7-13.0)
[2023-05-23 15:04] LABS: ACTIVATED PTT 31.3 SECONDS (25.2-36.5); POTASSIUM 4.4 mmol/L (3.5-5.1)
[2023-05-23 15:06] LABS: BLOOD UREA NITROGEN 14.9 mg/dL (7-18); CALCIUM 8.6 mg/dL (8.5-10.1)
[2023-05-23 15:07] LABS: ALBUMIN 3.8 g/dl (3.4-5.0)
[2023-05-23 15:10] LABS: CREATININE 0.8 mg/dL (0.55-1.3)
[2023-05-23 15:11] LABS: BILIRUBIN,TOTAL 0.8 mg/dL (0.2-1); TOT PROT 7.9 g/dl (6.4-8.2)
[2023-05-23 15:27] LABS: THROAT:GRP A STREP NOT DETECTED (NOTDETECTED)
[2023-05-23] MEDS ORDERED: KETOROLAC TROMETHAMINE 15 MG/ML VIAL IVPUSH ONE (15:42)
[2023-05-23] MEDS ORDERED: KETOROLAC TROMETHAMINE 15 MG/ML VIAL ONE (15:43)
[2023-05-23 16:03] VITALS: BP 121/57; PULSE 99; RESP 22; TEMP 100.5
== END 2023-05-23 16:44 | disposition home or self-care (01) ==
LOC: JER 12:44
PROC: 3E033NZ Introduction of Analgesics, Hypnotics, Sedatives into Peripheral Vein, Percutaneous Approach (ICD-10-PCS; principal; 2023-05-23)
PROC: 3E033GC Introduction of Other Therapeutic Substance into Peripheral Vein, Percutaneous Approach (ICD-10-PCS; 2023-05-23)
PROC: 3E0333Z Introduction of Anti-inflammatory into Peripheral Vein, Percutaneous Approach (ICD-10-PCS; 2023-05-23)
DX: R05.9 Cough, unspecified (principal); M79.10 Myalgia, unspecified site; R50.9 Fever, unspecified; R11.2 Nausea with vomiting, unspecified; R51.9 Headache, unspecified; R53.1 Weakness; R00.0 Tachycardia, unspecified; J11.1 Influenza due to unidentified influenza virus with other respiratory manifestations; Z20.822 Contact with and (suspected) exposure to COVID-19
CPT/HCPCS: 0241U-QW; 36415; 71045-TC-FY; 80053; 82550; 82553; 82803; 83605; 84484; 84703; 85025; 85610; 85730; 87040; 87651; 93005; 93010; 96374; 96375; 99285-25